=== PATIENT | female | born 1960 | race African-American/Black ===

== ENCOUNTER 2016-04-19 06:21 | Outpatient (CLI) | payer MEDICAID ==
[~2016-04-19] VITALS: Ht 157.5 cm; Wt 94.1 kg
[2016-04-19] MEDS ORDERED: ZESTORETIC 20/21 TAB PO (07:29)
[2016-04-19] MEDS ORDERED: OMEPRAZOLE20 M1 PO (07:29)
[2016-04-19] MEDS ORDERED: ZYRTEC10 MG PO (07:30)
[2016-04-19] MEDS ORDERED: CARTIA XT300 MG PO (07:30)
[2016-04-19] MEDS ORDERED: VITAMIN D5000 UNIT PO (07:31)
[2016-04-19] MEDS ORDERED: ULTRAM50 MG PO (07:32)
[2016-04-19 07:39] VITALS: BP 120/77; BMI 37.9
[2016-04-19 07:58] LABS: BASOPHILS 0.2 % (0.0-2.0); EOSINOPHILS 5.7 % (0-7); HEMATOCRIT 30.5 % (36.0-48.0); HEMOGLOBIN 9.3 g/dL (12-16); IMMATURE GRANULOCYTES 0.4 % (0-5); LYMPHOCYTES 32.7 % (15-50); MCH 27.2 pg (26.0-34.0); MCHC 30.5 g/dL (31.0-37.0); MCV 89.2 fL (80.0-100.0); MONOCYTES 11.8 % (2-11); NEUTROPHILS 49.2 % (40-80); PLATELET COUNT 353 10x3/uL (130-400); RBC 3.42 10x6/uL (4.00-5.40); RDW 13.7 % (11.5-14.5); WBC 4.9 10x3/uL (4.8-10.8)
[2016-04-19 08:02] LABS: ANION GAP 17.1 mmol/L (8-16); APTT 28.1 SECONDS (22.8-39.4); CALCIUM 8.9 mg/dL (8.5-10.1); CARBON DIOXIDE 20.3 mmol/L (21.0-32.0); CREATININE - SERUM 3.3 mg/dL (0.6-1.3); INR 1.07 (0.85-1.17); POTASSIUM - SERUM 4.4 mmol/L (3.5-5.1); PROTIME 13.7 SECONDS (11.6-15.0)
[2016-04-19 11:09] VITALS: BP 107/69; Ht 157.5 cm; Wt 94.1 kg
[2016-04-19 12:28] VITALS: BP 112/70
[2016-04-19 16:28] VITALS: BP 106/64
--- NOTE | 2016-04-19 19:00 | NUR ---
RECEIVED REPORT AND ASSUMED PT CARE FROM DAY SHIFT NURSE @ THIS TIME.
[2016-04-19 19:53] VITALS: BP 111/52
--- NOTE | 2016-04-19 20:30 | NUR ---
PT STATES SHE IS NOT DIABETIC AND DOES NOT UNDERSTAND WHY WE ARE WATCHING HER GLUCOSE CHECKS. PT'S LAST GLUCOSE WAS 93. ACCU-CHECK NOT DONE AT THIS TIME PER PT REQUEST. WILL MONITOR
--- NOTE | 2016-04-19 22:30 | NUR ---
PT RESTING WELL WITHOUT C/O OR DISTRESS NOTED. CALL LIGHT WITHIN REACH. WI CONT TO MONITOR.
[2016-04-20 00:24] VITALS: BP 108/59
[2016-04-20 04:23] VITALS: BP 126/71
[2016-04-20 06:40] LABS: BASOPHILS 0.2 % (0.0-2.0); EOSINOPHILS 7.6 % (0-7); HEMATOCRIT 26.9 % (36.0-48.0); HEMOGLOBIN 8.5 g/dL (12-16); LYMPHOCYTES 29.7 % (15-50); MCH 28.1 pg (26.0-34.0); MCHC 31.6 g/dL (31.0-37.0); MCV 89.1 fL (80.0-100.0); MEAN PLATELET VOLUME 9.8 fL (7.4-10.4); MONOCYTES 14.1 % (2-11); NEUTROPHILS 48.4 % (40-80); PLATELET COUNT 322 10x3/uL (130-400); RBC 3.02 10x6/uL (4.00-5.40); RDW 13.9 % (11.5-14.5); WBC 4.9 10x3/uL (4.8-10.8)
--- NOTE | 2016-04-20 08:00 | NUR ---
INTRODUCED MYSELF TO PT PRIMARY RN FOR TODAYS SHIFT. PT HOPES TO BE D/C TODAY AND WHEN AM LAB RESOLVES WE WILL SEE. PT HAS DRSG TO R.FLANK CDI NO S/S OF BLEEDING PT DENIES ANY PAIN. D/C PTS L.FA PIV WITH CATHETER TIP FULLY INTACT. PT READY TO BE DISCHARGED. WILL CONTINUE TO MONITER UNTIL ORDER.
[2016-04-20 08:47] LABS: BASOPHILS 0.2 % (0.0-2.0); EOSINOPHILS 8.8 % (0-7); HEMATOCRIT 28.4 % (36.0-48.0); HEMOGLOBIN 8.7 g/dL (12-16); IMMATURE GRANULOCYTES 0.2 % (0-5); LYMPHOCYTES 33.9 % (15-50); MCH 27.7 pg (26.0-34.0); MCHC 30.6 g/dL (31.0-37.0); MCV 90.4 fL (80.0-100.0); MEAN PLATELET VOLUME 9.2 fL (7.4-10.4); MONOCYTES 8.2 % (2-11); NEUTROPHILS 48.7 % (40-80); PLATELET COUNT 310 10x3/uL (130-400); RBC 3.14 10x6/uL (4.00-5.40); RDW 13.8 % (11.5-14.5)
[2016-04-20 08:49] VITALS: BP 124/75
--- NOTE | 2016-04-20 10:48 | NUR ---
DISCHARGE TEACHING PROVIDED PAPERS SIGNED AND OBTAINED IN CHART. PT IS COLLECTING HER BELONGINGS, WAITING ON HER TRANSPORTATION. WILL CPOC.
--- NOTE | 2016-04-20 12:01 | NUR ---
PT LEAVING NOW WITH FAMILY.
== END 2016-04-20 12:01 | disposition home or self-care (01) ==
LOC: D.OPS 06:21 → D.RAD 09:00 → D.M2 10:53 → D.OPS 10:53 → D.M2 04-20 12:01
PROVIDERS: Internal Medicine Nephrology; Radiology Vascular & Interventional Radiology
DX: I12.9 Hypertensive chronic kidney disease with stage 1 through stage 4 chronic kidney disease, or unspecified chronic kidney disease (principal); N18.4 Chronic kidney disease, stage 4 (severe)

== ENCOUNTER 2016-10-23 06:56 | Day surgery (SDC) | payer MEDICAID ==
[~2016-10-23] VITALS: Ht 157.5 cm; Wt 96.6 kg
--- NOTE | ~2016-10-23 | OP ---
PATIENT NAME: TOMAS JACKSON MEDICAL RECORD: [id number] :58 LOCATION:D.[facility] ADMISSION DATE: SURGEON: SUZAN WINSLOW MD DATE OF OPERATION: 10/23/[address] Grupo Hagen. PREOPERATIVE DIAGNOSIS: Chronic kidney disease stage IV. POSTOPERATIVE DIAGNOSIS: Chronic kidney disease stage IV. OPERATION PERFORMED: Creation of a left arm brachial artery to basilic vein Cyrus type AV fistula. The first of 2 planned operations in construction of a translocated basilic vein fistula. SURGEON: Suzan Winslow MD. ANESTHESIA: Regional nerve block plus general per BUSINESS SUPPORT LIAISON with an LMA. PREOPERATIVE NOTE: Ms. Jackson is a 56-year-old -[place] female from [place], who has chronic kidney disease due to hypertension and is thought to likely require dialysis within the year. She is brought to the operating room at this time to attempt to create a left arm AV fistula. She is right handed. Under regional nerve block and then general anesthesia administered via LMA per BUSINESS SUPPORT LIAISON, she was placed in supine position with the left arm abducted and she was prepped and draped in sterile manner. Topical nitroglycerin was applied and a Wyatt drain used as a proximal tourniquet and the superficial veins and the radial and the brachial artery was examined with ultrasound. The patient's veins were very small and really the only satisfactory vein I found for the fistula was the basilic vein above the antecubital space. I therefore made an incision over it and made a hockey stick shaped incision across on to the antecubital space. The basilic vein was visualized and mobilized, its tributaries divided between clips and 3-0 Vicryl ties and the brachial artery just above the antecubital space was exposed, mobilized and controlled with the proximal and distal doubly looped Silastic tapes and small branches were divided between clips and also with minimal amounts of electrocautery. The vein was ligated distally and then transected and beveled, was marked with a marking pen for orientation, was flushed with heparinized saline and treated with topical papaverine. The artery was occluded and opened and then flushed proximally and distally with heparinized saline and then treated with topical papaverine. An approximately 6-7 mm long arteriotomy was made and the anastomosis performed in the vein to side of artery with running 7-0 Prolene. When completed and the occluding loops and clamps were released, excellent flow was immediately established within the new fistula and the suture line was hemostatic. Preservation pulsatile flow in the distal brachial artery and in the radial and ulnar arteries was noted with Doppler. The wound was irrigated with Ancef and gentamicin solution, it was infiltrated and irrigated with 0.5% Marcaine with epinephrine. It was then closed without the use of a drain approximating subcutaneous tissues with interrupted inverted 3-0 Vicryl and skin with a running 4-0 Monocryl. The incision was sealed with Dermabond glue and dressed additionally then with Maxorb Ag, Tegaderm and Cavilon skin prep. She was awakened and taken to the recovery room. OPERATIVE REPORT [id number] TOMAS JACKSON Blood loss during the operation was trivial and was unreplaced and all sponges, instruments, and needles were accounted for. No drain was used and no surgical specimen was submitted for histopathology. PLAN: The patient will go home today and come back to see me within the next 7-14 days. She can wash over the waterproof bandages as desired and I will plan to remove her dressings in the office. If though she needs or wishes to remover her dressings prior to that, she may. She can then washed the incision directly with soap and water and covered it with clean, dry gauze. She is to continue all of her same medications and in addition is given a printed prescription for [place], hydrocodone 5 mg with acetaminophen 325, #20. She can have 1 p.o. q. 4 hours p.r.n. pain, no refills. TRANSINT:[id number] Voice Confirmation ID: [id number] DOCUMENT ID: [id number] SUZAN WINSLOW MD CC: BROOKS HAGEN MD [id number] DICTATION DATE: 10/23/16 1445 STORAGE RECEIPT POSTER: 10/23/162115 [facility] 10/23/16 [place] [id number] [place] [id number]
[~2016-10-23 06:56] MED LIST: CARTIA XT300 MG PO; OMEPRAZOLE20 M1 PO; ULTRAM50 MG PO; VITAMIN D5000 UNIT PO; ZESTORETIC 20/21 TAB PO; ZYRTEC10 MG PO
[2016-10-23 07:55] LABS: ANION GAP 18.4 mmol/L (8-16); BASOPHILS 0.2 % (0-2); CALCIUM 9.1 mg/dL (8.5-10.1); CARBON DIOXIDE 18.6 mmol/L (21.0-32.0); CREATININE - SERUM 3.2 mg/dL (0.6-1.3); EOSINOPHILS 5.2 % (0-7); HEMATOCRIT 32.7 % (36.0-48.0); HEMOGLOBIN 10.1 g/dL (12-16); IMMATURE GRANULOCYTES 0.2 % (0-5); LYMPHOCYTES 34.7 % (15-50); MCH 28.6 pg (26.0-34.0); MCHC 30.9 g/dL (31.0-37.0); MCV 92.6 fL (80.0-100.0); MEAN PLATELET VOLUME 9.8 fL (7.4-10.4); MONOCYTES 13.2 % (2-11); NEUTROPHILS 46.5 % (40-80); PLATELET COUNT 348 10x3/uL (130-400); RBC 3.53 10x6/uL (4.00-5.40); RDW 14.5 % (11.5-14.5)
[2016-10-23 08:09] LABS: APTT 27.8 SECONDS (22.8-39.4); INR 0.94 (0.85-1.17); PROTIME 12.4 SECONDS (11.6-15.0)
[2016-10-23] MEDS ORDERED: COZAAR100 MG PO (10:23)
[2016-10-23 10:28] VITALS: Ht 157.5 cm; Wt 96.6 kg
[2016-10-23] MEDS ORDERED: HYDROCODON-ACE1 EAC7 PO (14:33)
--- NOTE | 2016-10-23 14:46 | NUR ---
THE PATIENT HAD A SUPRACLAVICULAR BLOCK PRIOR TO PROCEEDURE
== END 2016-10-23 16:40 | disposition home or self-care (01) ==
LOC: D.OPS 06:56
PROVIDERS: Surgery
DX: I12.9 Hypertensive chronic kidney disease with stage 1 through stage 4 chronic kidney disease, or unspecified chronic kidney disease (principal); N18.4 Chronic kidney disease, stage 4 (severe); K21.9 Gastro-esophageal reflux disease without esophagitis; Z01.812 Encounter for preprocedural laboratory examination

== ENCOUNTER 2016-11-20 05:45 | Day surgery (SDC) | payer MEDICAID ==
[2016-11-19 16:28] LABS: APTT 26.9 SECONDS (22.8-39.4)
[2016-11-19 16:31] LABS: CALC OSMOLALITY 279 mosm/kg (275-300); CALCIUM 8.2 mg/dL (8.5-10.1); CARBON DIOXIDE 20.6 mmol/L (21.0-32.0); CHLORIDE - SERUM 98 mmol/L (98-107); CREATININE - SERUM 0.7 mg/dL (0.6-1.3); GLUCOSE 117 mg/dL (74-106); POTASSIUM - SERUM 3.7 mmol/L (3.5-5.1); SODIUM 131 mmol/L (136-145); UREA NITROGEN 58 mg/dL (7-18); eGFR NON AFRICAN AMERICAN > 90 mL/min (90-120)
[2016-11-19 17:03] LABS: BASOPHILS 0.3 % (0-2); EOSINOPHILS 3.5 % (0-7); HEMATOCRIT 33.2 % (36.0-48.0); HEMOGLOBIN 10.3 g/dL (12-16); IMMATURE GRANULOCYTES 0.3 % (0-5); LYMPHOCYTES 38.3 % (15-50); MCH 29.1 pg (26.0-34.0); MCV 93.8 fL (80.0-100.0); MEAN PLATELET VOLUME 9.5 fL (7.4-10.4); MONOCYTES 14.9 % (2-11); NEUTROPHILS 42.7 % (40-80); PLATELET COUNT 353 10x3/uL (130-400); RBC 3.54 10x6/uL (4.00-5.40); RDW 14.2 % (11.5-14.5); WBC 5.8 10x3/uL (4.8-10.8)
[~2016-11-20] VITALS: Ht 157.5 cm; Wt 97.3 kg
--- NOTE | ~2016-11-20 | OP ---
PATIENT NAME: TOMAS JACKSON MEDICAL RECORD: [id number] :58 LOCATION:D.[facility] ADMISSION DATE: SURGEON: SUZAN WINSLOW MD DATE OF OPERATION: 11/20/2016 REFERRING PHYSICIAN: Grupo Hagen MD PREOPERATIVE DIAGNOSES: CKD V and hypertension. POSTOPERATIVE DIAGNOSES: CKD V and hypertension. OPERATIONS PERFORMED: Creation of a left arm brachial artery to basilic vein arteriovenous fistula. A planned return to the operating room for procedure after initial creation of a Cyrus-type basilic vein fistula several weeks ago. SURGEON: Suzan Winslow MD ANESTHESIA: General with LMA per SCHOOL HEALTH ASSISTANT. PREOPERATIVE NOTE: Ms. Jackson is a 56-year-old -[place] female, patient from [place]. She has chronic kidney disease and was referred for dialysis access. She is not yet dialyzing. She has small vessels, and about 3 weeks ago, I took her to the operating room for creation of a Cyrus-type AV fistula, brachial artery to basilic vein, with plans to return her to the operating room for creation of a translocated brachial artery to basilic vein fistula after the basilic vein had had time to dilate and begin to arterialize. She is returned to the OR as planned at this time. DESCRIPTION OF PROCEDURE: Under general anesthesia, in the supine position, the patient was prepped and draped in sterile manner. I examined her with ultrasound and found that the basilic vein was greater than a centimeter in diameter for all of its length from the arterial anastomosis proximally and was certainly suitable for translocation. I made a long incision on the inside of the arm and mobilized the vein, dividing tributary and perforating our communicating veins between clips and Vicryl ties. The arterial anastomosis was found to be surrounded by fairly intense inflammation with fat necrosis, which made this portion of the dissection difficult, but satisfactory exposure was made. The vein was treated topically several times with papaverine and dilated hydrostatically. I made a tunnel using a Derek tunneler and passing the vein out laterally and then back medially to get a nice rainbow effect. The vein was clamped and transected near the arterial anastomosis. It was flushed and irrigated with heparinized saline and the arterial anastomosis was flushed with heparinized saline. The graft was then placed in the tunnel, taking care not to cause any twists or kinks. An end-to-end anastomosis was then completed with 7-0 Prolene. The wound was drained with a 15-Dominican round Jayjay fluted-type Maik-Mcrae drain, brought out distally through a separate stab incision. The wound was irrigated and infiltrated with 0.25% Marcaine with epinephrine and the wound was then closed in layers with Vicryl and Monocryl. By the time the wound was closed, the fistula had thrombosed as manifested by total absence of Doppler signal and absence of a palpable pulse. The wound was reopened and the problem was traced to a clot in the arterial end or juxta-anastomotic portion of the graft, possibly related to the nonuse of systemic anticoagulation. The vein was clamped and transected and the old anastomosis was excised. I had to do considerable revision of the tunnel and creation of flap to take all tension off of the vein so that a new end-to-end anastomosis could be performed. The OPERATIVE REPORT [id number] TOMAS JACKSON patient was systemically heparinized and the arterial anastomosis was again flushed with heparinized saline. The basilic vein itself was flushed several times with heparinized saline. An end-to-end anastomosis was done with running 7-0 Prolene. When completed and clamps were released, excellent flow was immediately established. The suture line was treated with Evicel. The wound again was irrigated with Ancef and gentamicin solution. The wound was closed over the J-P drain in layers with 3-0 Vicryl and then running intracuticular Monocryl and Dermabond glue. The drain was attached to suction and the wound was dressed with Maxorb Ag, Tegaderm, and Cavilon skin prep. The patient was awakened and taken to the recovery room in stable condition. Her heparin was not reversed and I plan to continue her on intravenous heparin drip overnight, giving her an overnight observation status here in the hospital. She will need to be observed for potential bleeding and to be sure that her pain control is adequate. She will most likely be able to go home tomorrow on aspirin and a prescription analgesic with a followup scheduled to see me in my office the following week. Blood loss during the operation today was about 10 cc, none was replaced. All sponges, instruments, and needles were accounted for. One drain was used as I have described above and no surgical specimen was submitted for histopathology. TRANSINT:[id number] Voice Confirmation ID: [id number] DOCUMENT ID: [id number] SUZAN WINSLOW MD CC: BROOKS HAGEN MD [id number] DICTATION DATE: 11/20/16 1243 SILVERWARE BUFFER: 11/20/16 1419 [place] [id number] [place] [id number]
--- NOTE | ~2016-11-20 | DS ---
PATIENT:BRADLEY JACKSON :58 MEDICAL RECORD: [id number] DISCHARGE SUMMARY ADMISSION DATE: 11/20/16 DISCHARGE DATE: 11/21/16 Bradley Jackson was discharged from observation. She is status post left upper extremity fistula revision by Dr. Mendez and had a RODERICK drain. She is insistent that she is going home today, stopped on heparin drip. We did discuss that her access can clot, that she could have swelling, infection and other issues, but she is ready to go home. I did prescribe her [place] 7.5/325 and ask my nurse in my clinic to check the narcotic database for filling this prescription. She will return for any problems. She is alert and oriented times 3. Normocephalic, atraumatic, arm swelling is minimal, but she has a RODERICK drain that likely will be removed. Abdomen is nontender in all 4 quadrants. No clubbing, cyanosis or edema. Lab is stable on discharge. Not that it matters to her what her blood pressure, her labs is, but H&H was 12/33 with a white count of 12,000, some concern about the increase in the white count, but there is no overt sign of infection, but this could develop on discharge as well, and to call for any problems, to call for appointment with nurse practitioner in 7-14 days if she has any issues. She is scheduled to see Dr. Hagen in early December and she is to call for an appointment with Dr. Mendez, he is operating today. Stable on discharge. Renal diet and as above. TRANSINT:[id number] Voice Confirmation ID: [id number] DOCUMENT ID: [id number] KARYNA BAUGH MD CC: [id number] DICTATION DATE: 11/21/16 1044 LEATHER CARTRIDGE BELT MAKER: 11/22/16 0151 [facility] 11/21/16 [place] [id number] [place] [id number]
[~2016-11-20 05:45] MED LIST changes: +COZAAR100 MG PO; +FERROUS SULFAT325 MG PO; +HYDROCODON-ACE1 EAC7 PO; +HYZAAR 100-25 T1 TAB PO; +NEURONTIN 300300 MG PO; +TYLENOL W/CODEI1 TAB PO
[2016-11-20 06:24] VITALS: BMI 39.2
[2016-11-20] MEDS ORDERED: HYDROCODON-ACE1 EAC7 PO (12:20)
--- NOTE | 2016-11-20 15:26 | NUR ---
1455 REPORT @ BEDSIDE TO Basilio NEAL R.N. ELEVATED BP NOTED @ 1440: 165/118, 1445:180/133, 1447:190/101. PT COUGHING. STATES SHE NORMALLY HAS A BAD HEADACHE WITH ELEVATED BP & HEAD IS NOT HURTING. Keren PEÑALOZA R.N. 1520 DELFINA PRADO APN/MARY ELLEN/NEPHROLOGY NOTIFIED OF ELEVATED BP. CURRENT BP READING 167/84. Keren PEÑALOZA R.N.
--- NOTE | 2016-11-20 15:50 | NUR ---
7038 REPORT PER PHONE TO WILFRID TURNER R.N.. Keren PEÑALOZA R.N.
--- NOTE | 2016-11-20 16:17 | NUR ---
PT RECEIVED TO ROOM 2111 VIA STRETCHER, ORIENTED PT TO ROOM AND CALL LIGHT. PT STATES PAIN LEVEL OF 6/10, PAIN MEDS GIVEN IN OR. HAPARIN DRIP INFUSING AT 5ML/HR TO RT UPPER ARM, RESP EVEN AND UNLABORED. SCD'S PLACED ON BILAT, NAD NOTED, PT DENIES ANY NEEDS AT THIS TIME. CALL LIGHT IN REACH, NAD NOTED, WILL CONTINUE TO MONITOR.
[2016-11-20 16:19] VITALS: BP 118/80; Ht 157.5 cm; Wt 97.3 kg
--- NOTE | 2016-11-20 20:10 | NUR ---
FAMILY MEMBER TALKS. TO PT AT BEDSIDE
[2016-11-20 21:26] VITALS: BP 125/77
--- NOTE | 2016-11-21 00:30 | NUR ---
EMPTY RODERICK DRANGE 30ML.
--- NOTE | 2016-11-21 02:58 | NUR ---
PT AWAKE, ALERT, ORIENTED, UP IN ROOM, HOLDING HER DRAIN WITH HER LEFT HAND. PT IS REQUESTING TO BE OFF THE SCD'S FOR NOW. PT STATES THEY ARE UNCOMFORTABLE AND NEEDS A BREAK FROM THEM. PT STATES SHE AMBULATES TO BATHROOM AND AROUND HER ROOM WITHOUT ANY DIFFICULTY AT THIS TIME, AND AMBULATES FREQUENTLY. WILL CONTINUE TO MONITOR CLOSELY. BED LOW, CALL LIGHT IN REACH, SIDE RAILS X 2 WHEN PT IS IN BED.
--- NOTE | 2016-11-21 04:45 | NUR ---
REST IN BED, EYE CLOSE, CALL LIGHT IN REACH.
[2016-11-21 06:48] LABS: BASOPHILS 0 % (0-2); EOSINOPHILS 0 % (0-7); HEMATOCRIT 29.9 % (36.0-48.0); HEMOGLOBIN 9.3 g/dL (12-16); IMMATURE GRANULOCYTES 0.3 % (0-5); LYMPHOCYTES 12.5 % (15-50); MCH 28.8 pg (26.0-34.0); MCHC 31.1 g/dL (31.0-37.0); MCV 92.6 fL (80.0-100.0); MEAN PLATELET VOLUME 10.1 fL (7.4-10.4); MONOCYTES 8.7 % (2-11); NEUTROPHILS 78.5 % (40-80); PLATELET COUNT 340 10x3/uL (130-400); RBC 3.23 10x6/uL (4.00-5.40); RDW 14.2 % (11.5-14.5)
[2016-11-21 06:55] LABS: WBC 9.8 10x3/uL (4.8-10.8)
[2016-11-21 07:07] LABS: ANION GAP 15.6 mmol/L (8-16); CALCIUM 8.3 mg/dL (8.5-10.1); CARBON DIOXIDE 21.5 mmol/L (21.0-32.0)
[2016-11-21 07:09] LABS: CREATININE - SERUM 3.6 mg/dL (0.6-1.3); POTASSIUM - SERUM 5.1 mmol/L (3.5-5.1)
[2016-11-21 07:59] VITALS: BP 143/79
--- NOTE | 2016-11-21 08:58 | NUR ---
AM MEDS GIVEN AT THIS TIME. PROVIDED PT WITH ICE PACK. PT DENIES ANY NEEDS AT THIS TIME. CALL LIGHT IN REACH, NAD NOTED, WILL CONTINUE TO MONITOR.
--- NOTE | 2016-11-21 10:19 | NUR ---
ERICH WIGGINS RENAL PROGRAM COORDINATOR, WAITING ON HER TO CALL BACK.
--- NOTE | 2016-11-21 10:28 | NUR ---
CALLED DR. ESPINAL CELL PHONE, BUT WAS NOT ABLE TO GET A HOLD OF HIM. WILL TRY AGAIN IN 10MIN.
--- NOTE | 2016-11-21 10:39 | NUR ---
INFOREMED DR. BAUGH THAT PT'S IV INFILTRATED AND PT DOES NOT WANT ANOTHER IV STARTED BECAUSE SHE IS SUPPOSE TO GO HOME TODAY. PT IS ON HEPARIN DRIP. DR. BAUGH STATED THAT IT PT DOES NOT WANT ANOTHER IV STARTED THAT WAS FINE, TO ALSO NOTIFY DR. WINSLOW. D/C PT'S RT UPPER IV, TIP INTACT. COVERED SITE WITH 2X2 AND TAPE. PT DENIES ANY NEEDS AT THIS TIME, CALL LIGHT IN REACH, NAD NOTED, WILLC ONTINUE TO MONITOR.
[2016-11-21] MEDS ORDERED: ASPIRIN81 MG PO (11:38)
--- NOTE | 2016-11-21 12:00 | NUR ---
TOTAL RODERICK DRAIN OUTPUT 20CC.
[2016-11-21 12:03] VITALS: BP 132/80
--- NOTE | 2016-11-21 12:12 | NUR ---
CALLLED DR. WINSLOW'S OFFICE AT [facility], SPOKE WITH DEEP, ASKED HER TO ASK DR. WINSLOW IF HE WANTS THE RODERICK DRAIN D/C OR LEFT IN. AND IF PT NEEDS TO F/U WITH HIM. DEEP WILL CALL BACK WITH NEW ORDERS.
[2016-11-21] MEDS ORDERED: NORCO 7.5/325 T1 TA1 PO (13:02)
--- NOTE | 2016-11-21 13:42 | NUR ---
RODERICK DRAIN REMOVED AT THIS TIME. PT TOLERATED PROCEDURE WELL. 4X4 AND KERLEX APPLIED TO RODERICK INCISION SITE. PROVIDED VERBAL AND WRITTEN DISCHARGE TEACHING TO PT. PT VERBALIZED UNDERSTANDING REGARDING TEACHING. PT WILL NOTIFY NURSE OR VIDEO MANAGER WHEN READY FOR WHEELCHAIR, NAD NOTED, WILL CONTINUE TO MONITOR.
--- NOTE | 2016-11-21 14:05 | NUR ---
PT LEFT UNIT VIA WHEELCHAIR, ACCOMPANIED BY FAMILY MEMBER, NAD NOTED.
== END 2016-11-21 14:06 | disposition home or self-care (01) ==
LOC: D.OPS 05:45 → D.M2 05:45 → D.OPS 08:00 → D.PAN 08:00 → D.M2 12:22 → D.OPS 11-21 14:06
PROVIDERS: Internal Medicine Nephrology; Surgery
DX: I12.9 Hypertensive chronic kidney disease with stage 1 through stage 4 chronic kidney disease, or unspecified chronic kidney disease (principal); N18.4 Chronic kidney disease, stage 4 (severe); Z99.2 Dependence on renal dialysis; G47.30 Sleep apnea, unspecified; K21.9 Gastro-esophageal reflux disease without esophagitis; E66.9 Obesity, unspecified; Z68.39 Body mass index [BMI] 39.0-39.9, adult; D63.1 Anemia in chronic kidney disease; Z01.812 Encounter for preprocedural laboratory examination